=== PATIENT | male | born 1970 | race Caucasian/White ===

== ENCOUNTER 2018-05-07 21:12 | Emergency (ER) | payer BC ==
[2018-05-07] MEDS ORDERED: ONDANSETRON HCL INJ/PF 4 MG/2 ML SDV IV ONE (22:54)
[2018-05-07] MEDS ORDERED: MORPHINE SULFATE 10 MG/ML INJ IV ONE (22:54)
[2018-05-07] MEDS ORDERED: NORMAL SALINE 1000 ML 1,000 ML IV ONE (22:54)
--- NOTE | 2018-05-07 22:59 | ER Document Report ---
ED Oral Problem - General Chief Complaint: Toothache Stated Complaint: TOOTH PAIN Time Seen by Provider: 05/07/18 22:47 Notes: Patient is a 48 year old male that comes to the emergency department for chief complaint of pain and swelling to the left side of his jaw and neck. He states that he was evaluated on Sunday by dentist Dr. Quach, placed on clindamycin, told he had a fracture but needed to be treated for infection first. Patient has been taking ibuprofen and Tylenol for pain, he states today swelling worsened, pain worse and then tonight he could not stand any longer. He denies sore throat, fever. He denies any other medications on known medical history. TRAVEL OUTSIDE OF THE [place] IN LAST 30 DAYS: No - Related Data Allergies/Adverse Reactions: Penicillins Allergy (Verified 05/07/18 21:15) Past Medical History - General Information source: Patient - Social History Smoking Status: Never Smoker Drug Abuse: None Lives with: Family Family History: Reviewed & Not Pertinent - Medical History Medical History: Negative Surgical Hx: Negative - Immunizations Hx Diphtheria, Pertussis, Tetanus Vaccination: Yes Review of Systems - Review of Systems Constitutional: No symptoms reported EENT: See HPI Cardiovascular: No symptoms reported Respiratory: No symptoms reported Gastrointestinal: No symptoms reported Genitourinary: No symptoms reported Male Genitourinary: No symptoms reported Musculoskeletal: No symptoms reported Skin: No symptoms reported Hematologic/Lymphatic: No symptoms reported Neurological/Psychological: No symptoms reported Physical Exam - Vital signs Vitals: Temp Pulse Resp BP Pulse Ox 98.4 F 80 20 144/97 H 98 05/07/18 22:19 05/07/18 22:19 05/07/18 22:19 05/07/18 22:19 05/07/18 22:19 - Notes Notes: GENERAL: Alert, interacts well. No acute distress. HEAD: Normocephalic, atraumatic. EYES: Pupils equal, round, and reactive to light. Extraocular movements intact. ENT: There is swelling with a lot of tenderness just under the jawline on the left side in the submandibular area, there is lymphadenopathy nearby, no noted swelling of the soft tissues under the chin. Patient has pain with opening his mouth, unremarkable oropharyngeal exam. I do not see any swelling, erythema, or tenderness along the gumline or teeth, multiple fillings but no concerning oral abnormality. NECK: Full range of motion. Supple. Trachea midline. LUNGS: Clear to auscultation bilaterally, no wheezes, rales, or rhonchi. No respiratory distress. HEART: Regular rate and rhythm. No murmur ABDOMEN: Soft, non-tender. Non-distended. Bowel sounds present in all 4 quadrants. EXTREMITIES: Moves all 4 extremities spontaneously. No edema, normal radial and dorsalis pedis pulses bilaterally. No cyanosis. BACK: no cervical, thoracic, lumbar midline tenderness. No saddle anesthesia, normal distal neurovascular exam. NEUROLOGICAL: Alert and oriented x3. Normal speech. [cranial nerves II through XII grossly intact]. PSYCH: Normal affect, normal mood. SKIN: Warm, dry, normal turgor. No rashes or lesions noted. Course - Re-evaluation Re-evalutation: Patient has tenderness and swelling at the neck and jawline, no notable dental abscess, he does have some adenopathy as well. Decision was made to proceed with CAT scan, this shows swelling of the submandibular gland with adenopathy, no noted stone, no abscess, no other abnormality. Discussed this with patient, provided with pain management, he will continue clindamycin, provided him with a copy of his study, discussed treatment recommendations, return precautions, and ENT follow-up. Patient states satisfaction and agreement with plan. - Vital Signs Vital signs: Temp Pulse Resp BP Pulse Ox 99.3 F 85 14 127/78 H 97 05/08/18 02:19 05/08/18 02:19 05/08/18 02:19 05/08/18 02:19 05/08/18 02:19 - Laboratory Result Diagrams: 05/07/18 23:30 05/07/18 23:30 Discharge - Discharge Clinical Impression: Sialadenitis, Lymphadenopathy Condition: Stable Disposition: HOME, SELF-CARE Additional Instructions: The facial swelling is actually from a swollen salivary gland called the submandibular gland. I suspect you spit out a stone earlier today. This can be infected, you also have some swollen lymph nodes, as result I recommend that you continue the clindamycin, you have been treated for inflammation of the lymph nodes here, take the pain medicine if needed, use suckers that will express saliva to help reduce swelling faster such as lemon drops. Follow-up with the ENT referral listed below. Return for any concerning or worsening symptoms including increased swelling, fever of 100.4 or greater, difficulty swallowing, or any other concerning or worsening symptoms. [facility] Address: [address] [place] [address] Tamara [address], [place] [address] Prescriptions: Hydrocodone/Acetaminophen [[place] 5-325 mg Tablet] 1 - 2 tab PO ASDIR #10 tablet Forms: Return to Work Referrals: ISAIAS MCKEON MD [Primary Care Provider] - Follow up as needed
--- NOTE | 2018-05-07 23:22 | RADIOLOGY REPORT (SQ) ---
EXAM DESCRIPTION: XR NECK SOFT TISSUE COMPLETED DATE/TME: 05/07/2018 22:53 CLINICAL HISTORY: 48 years Male, eval for dental abscess, eval facial/neck swelling COMPARISON: None. Findings: Patent nasopharynx and airway. Bones, joints, and soft tissues of the XR NECK SOFT TISSUE 2V appear intact. IMPRESSION: No acute findings.
[2018-05-07 23:50] LABS: ABSOLUTE EOSINOPHILS # (AUTO) 0.1 10^3/uL (0.0-0.6); ABSOLUTE LYMPHOCYTES (AUTO) 1.2 10^3/uL (0.5-4.7); ABSOLUTE MONOCYTES (AUTO) 0.6 10^3/uL (0.1-1.4); ABSOLUTE NEUT (AUTO) 5.2 10^3/uL (1.7-8.2); BASOPHILS % (AUTO) 0.4 % (0-2); EOSINOPHILS % (AUTO) 0.9 % (0-6); HEMATOCRIT 39.8 % (37.9-51.0); HEMOGLOBIN 13.7 g/dL (13.5-17.0); LYMPHOCYTES % (AUTO) 16.4 % (13-45); MEAN CORPUSCULAR HEMOGLOBIN 30.1 pg (27.0-33.4); MEAN CORPUSCULAR HGB CONC 34.5 g/dL (32.0-36.0); MEAN CORPUSCULAR VOLUME 87 fl (80-97); PLATELET COUNT 150 10^3/uL (150-450); RED BLOOD COUNT 4.56 10^6/uL (4.35-5.55); SEGMENTED NEUTROPHILS % (AUTO) 73.3 % (42-78); TOTAL CELLS COUNTED % (AUTO) 100 %; WHITE BLOOD COUNT 7.1 10^3/uL (4.0-10.5)
[2018-05-08 00:02] LABS: ANION GAP 12 (5-19); BLOOD UREA NITROGEN 16 mg/dL (7-20); CARBON DIOXIDE 26 mmol/L (22-30); CHLORIDE 106 mmol/L (98-107); GLUCOSE 96 mg/dL (75-110); POTASSIUM 4.4 mmol/L (3.6-5.0); SODIUM 144.1 mmol/L (137-145)
[2018-05-08] MEDS ORDERED: KETOROLAC TROMETHAMINE INJ/PF 30 MG/1 ML SDV IV ONE (01:13)
--- NOTE | 2018-05-08 01:37 | RADIOLOGY REPORT (SQ) ---
EXAM DESCRIPTION: CT NECK CHEST WITH IV CONTRAST COMPLETED DATE/TME: 05/08/2018 00:00 CLINICAL HISTORY: 48 years Male, eval dental abscess L bottom rear tooth, eval neck swelling Comparison: None. Technique: IV contrast. Coronal and sagittal reformat. This exam was performed according to our departmental dose-optimization program, which includes automated exposure control, adjustment of the mA and/or kV according to patient size and/or use of iterative reconstruction technique. [facility]: Dose Right [facility]: CareDose [facility]: Dose Right [facility]: Teradose 4D [facility]: Transactiv LIMITATIONS: None Findings: Orbits: Not imaged. Visualized paranasal sinuses, and skull base: [Normal. ] Nasopharynx: [Normal. ] Suprahyoid neck: 4.0 cm asymmetrically enlarged and inflamed left submandibular gland compared with 3.0 cm submandibular gland on the right. Mild left submandibular and suprahyoid cervical lymphadenopathy. No abscess. No radiopaque sialolith. [Otherwise unremarkable oropharynx, oral cavity, parapharyngeal space, and retropharyngeal space. ] Infrahyoid neck: [Normal larynx, hypopharynx, and supraglottis. ] Thyroid: [Normal. ] Thoracic inlet: [Normal lung apices and brachial plexus.] Lymph nodes [as above. Vascular structures: [Normal. ] Other findings: [None. ] Impression: Moderate left submandibular gland sialoadenitis. Differential etiologies include infectious, inflammatory, and neoplastic processes.
[2018-05-08] MEDS ORDERED: DEXAMETHASONE SOD PHOS INJ 10 MG/1 ML VIAL IV ONE (02:01)
[2018-05-08] MEDS ORDERED: HYDROCODONE/ACETAMINOPHEN 5-325 MG (6 TAB/ER DISP) PO PRN (02:04)
[2018-05-08 02:26] VITALS: BP 127/78
== END 2018-05-08 02:26 | disposition home or self-care (01) ==
LOC: ER 21:12
DX: K11.20 Sialoadenitis, unspecified (principal); R59.1 Generalized enlarged lymph nodes; R68.84 Jaw pain; M54.2 Cervicalgia; Z88.0 Allergy status to penicillin
CPT/HCPCS: 99284; 96361; 96374; 96375; 36415; 85025; 80048; 70360; 70491; J1885; J2270; J2405; J7030; J1100